=== PATIENT | male | born 1995 | race Caucasian/White ===

== ENCOUNTER 2019-08-07 11:00 | Emergency (ER) | payer MEDICAID ==
[~2019-08-07] VITALS: Ht 177.8 cm; Wt 93.4 kg
--- NOTE | 2019-08-07 11:27 | Emergency Room Report ---
History of Present Illness General Chief Complaint: Lower Extremity Injury Source: Patient Present Illness HPI 24-year-old male presents with bilateral foot pain, greater than left, that started this morning after he reports he went for a run, roughly 45 minutes duration wearing [employer] ultra boost shoes. He did not injure himself, but when he was done he started having this achy, nonradiating, moderate intensity pain, worse with weightbearing, he actually has a crutch at home so he used it to offload weight from his right foot, and then report his left foot started hurting, both sides on the lateral aspect of the feet, he took ibuprofen 600 mg with good relief. Has any falls, calf pain, any other symptoms. Patient History Past Medical History: see triage record Reviewed Nursing Documentation: PMH: Agreed; PSxH: Agreed Nursing Documentation-PMH Past Medical History: No Stated History Review of Systems All Other Systems: negative except mentioned in HPI Physical Exam Vital Signs Date Time Temp Pulse Resp B/P (MAP) Pulse Ox O2 Delivery O2 Flow Rate FiO2 08/07/19 11:04 97.9 76 19 131/73 (92) 99 Room Air General Appearance: well appearing, no apparent distress Head: normocephalic, atraumatic ENT: hearing grossly normal, normal voice Neck: full range of motion, supple Respiratory: no respiratory distress, speaking full sentences Musculoskeletal: normal inspection, normal range of motion, no calf tenderness , non-tender, other - No erythema, no inflammation, no bony tenderness Neurologic: alert, normal gait Psychiatric: normal inspection, mood/affect normal Skin: no rash Medical Decision Making Diagnostic Impression: Primary Impression: Foot pain, right ER Course Patient is currently in a rehab facility, where he reports they make him do chores, so he requested we give him a note stating that he cannot bear too much weight on his feet. Patient's foot examination is normal, I suspect he is here for secondary gain to avoid having to do chores in his rehab facility. He reports that he usually exercises on an elliptical, and this is the first time he is gone out to run and he ran for 45 minutes without an injury, and started having the soreness. Then, his exam is very benign without any bony tenderness , I did suspect possible bursitis or tendinitis, however the story is very questionable as symptoms just started within the last hour and he showed up to the ER requesting a note. Last Vital Signs Date Time Temp Pulse Resp B/P (MAP) Pulse Ox O2 Delivery O2 Flow Rate FiO2 08/07/19 11:04 97.9 76 19 131/73 (92) 99 Room Air Disposition: HOME, SELF-CARE Condition: Stable Departure Forms: Return to Work Return to Work in (Days): 2 Other Restrictions: avoid bearing weight if it hurts for 2 days Patient Instructions: Foot Sprain OLINDA BALDERAS M.D Aug 07, 2019 11:27
[2019-08-07 11:46] VITALS: BP 128/70
== END 2019-08-07 11:46 | disposition home or self-care (01) ==
LOC: EMR 11:30
DX: M25.571 Pain in right ankle and joints of right foot (principal); M25.572 Pain in left ankle and joints of left foot
CPT/HCPCS: 99282